=== PATIENT | female | born 1935 ===

== ENCOUNTER 2018-06-30 13:43 | Emergency (ER) | payer OTHER ==
[~2018-06-30] VITALS: Ht 134.6 cm; Wt 36.3 kg
[2018-06-30] MEDS ORDERED: FIBERCON625 MG (13:54)
== END 2018-06-30 18:09 | disposition home or self-care (01) ==
LOC: EDBD 13:43 → ER 13:43
DX: K59.09 Other constipation (principal); M54.5 Low back pain